=== PATIENT | male | born 2000 | race Caucasian/White ===

== ENCOUNTER 2023-01-15 00:18 | Emergency (ER) | payer MEDICAID ==
[~2023-01-15] VITALS: Ht 175.3 cm; Wt 74.8 kg
[2023-01-15 00:32] VITALS: BP_SYST 123; PULSE 92; RESP 20; TEMP 97.9; O2SAT 98
--- NOTE | 2023-01-15 00:32 | NUR ---
Patient triaged and placed in waiting room. VSS and patient appears in no acute distress at this time. Accompanied by FRIEND, awaiting available bed, and MD notified of need for MSE.
--- NOTE | 2023-01-15 01:28 | NUR ---
URINE SAMPLE COLLECTED AND SENT TO LAB.
[2023-01-15 01:36] LABS: BILIRUBIN,URINE NEGATIVE (NEGATIVE); BLOOD, URINE NEGATIVE (NEGATIVE); CLARITY/URINE CLEAR (CLEAR); COLOR,URINE ORANGE (YELLOW); GLUCOSE,URINE NEGATIVE (NEGATIVE); KETONES,URINE NEGATIVE (NEGATIVE); LEUKOCYTE ESTERASE ,URINE NEGATIVE (NEGATIVE); NITRITE, URINE POSITIVE (NEGATIVE); PROTEIN URINE TRACE (NEGATIVE)
[2023-01-15 01:46] LABS: BACTERIA,URINE None Seen /HPF (None Seen); RBC,URINE 0-3 /HPF (0-3); WBC,URINE 0-3 /HPF (0-3)
--- NOTE | 2023-01-15 04:35 | NUR ---
DR. WILLIAMSON CALLED PATIENT FOR MSE. PT NOT FOUND IN WAITING.
--- NOTE | 2023-01-15 04:40 | NUR ---
CALLED PATIENT FOR BED PLACEMENT, PT NOT FOUND IN WAITING ROOM.
--- NOTE | 2023-01-15 04:50 | NUR ---
CALLED PATIENT IN WAITING ROOM FOR BED PLACEMENT. PATIENT NOT FOUND IN WAITING ROOM.
--- NOTE | 2023-01-15 05:00 | NUR ---
PATIENT LEFT WITHOUT BEING SEEN.
== END 2023-01-15 05:00 | disposition left against medical advice (07) ==
LOC: SED 00:18
DX: R10.30 Lower abdominal pain, unspecified (principal); R35.0 Frequency of micturition; H92.02 Otalgia, left ear; Z53.21 Procedure and treatment not carried out due to patient leaving prior to being seen by health care provider
CPT/HCPCS: 36415; 81000; 87110; 87491; 99281